=== PATIENT | male | born 1980 | race American Indian/Alaskan Native ===

== ENCOUNTER 2018-05-17 19:38 | Emergency (ER) | payer OTHER ==
[2018-05-17] MEDS ORDERED: ASPIRIN PO ONE (20:06)
[2018-05-17 20:26] LABS: Basophils # (Auto) 0.1 K/mm3 (0.0-0.1); Basophils % (Auto) 1.2 % (0.0-1.8); Eosinophils # (Auto) 0.1 K/mm3 (0.0-0.4); Eosinophils % (Auto) 1.1 % (0.0-4.3); Hematocrit 42.9 % (35.5-45.6); Lymphocytes # (Auto) 2.4 K/mm3 (1.2-5.4); Lymphocytes % (Auto) 31.9 % (13.4-35.0); Mean Corpuscular HGB Conc 33 % (32-34); Mean Corpuscular Volume 80 fl (84-94); Monocytes # (Auto) 0.9 K/mm3 (0.0-0.8); Monocytes % (Auto) 12.6 % (0.0-7.3); Platelet Count 322 K/mm3 (140-440); Red Blood Count 5.34 M/mm3 (3.65-5.03); Red Cell Distribution Width 14.7 % (13.2-15.2)
[2018-05-17 20:51] LABS: Alanine Aminotransferase 23 units/L (7-56); Albumin 4.2 g/dL (3.9-5); BUN/Creatinine Ratio 10; Blood Urea Nitrogen 12 mg/dL (9-20); Calcium 9.3 mg/dL (8.4-10.2); Hemolysis Index 14
--- NOTE | 2018-05-17 21:23 | Emergency Department Report ---
ED General Adult HPI - General Chief complaint: High BP Stated complaint: HIGH BLOOD PRESSURE Time Seen by Provider: 05/17/18 20:53 Source: patient, RN notes reviewed Mode of arrival: Ambulatory Limitations: No Limitations - History of Present Illness Initial comments: This is a 37-year-old gentleman who is not known to this provider previously. The patient reports a past medical history of hypertension, and possible atrial tachycardia. He recently moved here from [place]. He is taking metoprolol 25 mg daily, and ran out of his combination medication, sofya, 5/40, approximately 6 months ago. He presents to the ER today with a complaint of h igh blood pressure, sensation of chest racing. The symptoms are now resolved. The patient complains of no headache, denies chest pain, denies shortness of breath, denies vomiting, diaphoresis, and denies loss of consciousness. symptoms were transient, did not radiate anywhere, did not have exacerbating or relieving factors. The patient reports that earlier on this morning, he felt very transiently lightheaded, this lasted for a few seconds and it has since resolved. No recent surgery, no recent hospitalizations, no leg pain or leg swelling. Reports no recent prolonged periods of immobility. Does admits to road trip to [place] a few weeks ago, and reports stopping for gas and/or b athroom breaks. Patient specifically denies chest pain and shortness of breath at this time. -: Sudden Severity scale (0 -10): 0 Consistency: intermittent Improves with: none Worsens with: none Associated Symptoms: denies other symptoms - Related Data Previous Rx's Medication Instructions Recorded Last Taken Type Amlodipine Besylate [Norvasc] 5 mg PO QDAY #30 tablet 05/17/18 Unknown Rx Metoprolol [Lopressor TAB] 25 mg PO QDAY #30 tablet 05/17/18 Unknown Rx Allergies Allergy/AdvReac Type Severity Reaction Status Date / Time No Known Allergies Allergy Unverified 05/17/18 20:00 ED Review of Systems ROS: Stated complaint: HIGH BLOOD PRESSURE Other details as noted in HPI Constitutional: denies: fever Eyes: denies: vision change ENT: denies: epistaxis Respiratory: denies: cough Cardiovascular: palpitations. denies: chest pain Gastrointestinal: denies: abdominal pain, nausea, vomiting Genitourinary: denies: dysuria Musculoskeletal: denies: back pain Skin: denies: rash, lesions Neurological: denies: headache, weakness, abnormal gait, vertigo Psychiatric: denies: anxiety, depression ED Past Medical Hx - Past Medical History Previous Medical History?: Yes Hx Hypertension: Yes - Surgical History Past Surgical History?: No - Social History Smoking Status: Never Smoker Substance Use Type: None - Medications Home Medications: Home Medications Medication Instructions Recorded Confirmed Last Taken Type Amlodipine Besylate [Norvasc] 5 mg PO QDAY #30 tablet 05/17/18 Unknown Rx Metoprolol [Lopressor TAB] 25 mg PO QDAY #30 tablet 05/17/18 Unknown Rx ED Physical Exam - General Limitations: No Limitations General appearance: alert, in no apparent distress - Head Head exam: Present: atraumatic, normocephalic - Eye Eye exam: Present: normal appearance, EOMI. Absent: nystagmus - ENT ENT exam: Present: normal exam, normal orophraynx, mucous membranes moist, normal external ear exam - Neck Neck exam: Present: normal inspection, full ROM. Absent: tenderness, meningismus - Respiratory Respiratory exam: Present: normal lung sounds bilaterally. Absent: respiratory distress - Cardiovascular Cardiovascular Exam: Present: regular rate, normal rhythm, normal heart sounds. Absent: bradycardia, tachycardia, irregular rhythm, systolic murmur, diastolic m urmur, rubs, gallop - GI/Abdominal GI/Abdominal exam: Present: soft. Absent: distended, tenderness, guarding, rebound, rigid, pulsatile mass - Rectal Rectal exam: Present: deferred - Extremities Exam Extremities exam: Present: normal inspection, full ROM, other (2+ pulses noted in the bilateral upper, lower extremities. Compartments soft. No long bony tenderness. The pelvis is stable.). Absent: calf tenderness (there is no palpable cord. There is a negative Homans sign.) - Back Exam Back exam: Present: normal inspection, full ROM. Absent: tenderness, CVA tenderness (R), paraspinal tenderness, vertebral tenderness - Neurological Exam Neurological exam: Present: alert, oriented X3, CN II-XII intact, normal gait, other (Extraocular movements intact. Tongue midline. No facial droop. Facial sensation intact to light touch in the V1, V2, V3 distribution bilaterally. 5 and 5 strength in 4 extremities.. Sensation is intact to light touch in 4 extremities.). Absent: motor sensory deficit - Psychiatric Psychiatric exam: Present: anxious - Skin Skin exam: Present: warm, dry, intact, normal color. Absent: rash ED Course Vital Signs 05/17/18 05/17/18 05/17/18 19:56 20:00 20:51 Temperature 98.0 F 98 F 98.3 F Pulse Rate 109 H 105 H 99 H Respiratory 18 18 18 Rate Blood Pressure 199/117 199/117 Blood Pressure 144/106 [Left] O2 Sat by Pulse 98 98 100 Oximetry 05/17/18 20:52 Temperature Pulse Rate Respiratory 18 Rate Blood Pressure Blood Pressure [Left] O2 Sat by Pulse 99 Oximetry ED Medical Decision Making - Lab Data Result diagrams: 05/17/18 20:12 05/17/18 20:12 Vital Signs 05/17/18 05/17/18 05/17/18 19:56 20:00 20:51 Temperature 98.0 F 98 F 98.3 F Pulse Rate 109 H 105 H 99 H Respiratory 18 18 18 Rate Blood Pressure 199/117 199/117 Blood Pressure 144/106 [Left] O2 Sat by Pulse 98 98 100 Oximetry 05/17/18 20:52 Temperature Pulse Rate Respiratory 18 Rate Blood Pressure Blood Pressure [Left] O2 Sat by Pulse 99 Oximetry Lab Results 05/17/18 05/17/18 Range/Units 20:12 20:12 WBC 7.4 (4.5-11.0) K/mm3 RBC 5.34 H (3.65-5.03) M/mm3 Hgb 14.0 (11.8-15.2) gm/dl Hct 42.9 (35.5-45.6) % MCV 80 L (84-94) fl MCH 26 L (28-32) pg MCHC 33 (32-34) % RDW 14.7 (13.2-15.2) % Plt Count 322 (140-440) K/mm3 Lymph % (Auto) 31.9 (13.4-35.0) % Will % (Auto) 12.6 H (0.0-7.3) % Eos % (Auto) 1.1 (0.0-4.3) % Baso % (Auto) 1.2 (0.0-1.8) % Lymph # 2.4 (1.2-5.4) K/mm3 Will # 0.9 H (0.0-0.8) K/mm3 Eos # 0.1 (0.0-0.4) K/mm3 Baso # 0.1 (0.0-0.1) K/mm3 Seg Neutrophils % 53.2 (40.0-70.0) % Seg Neutrophils # 4.0 (1.8-7.7) K/mm3 Sodium 143 (137-145) mmol/L Potassium 4.3 (3.6-5.0) mmol/L Chloride 102.3 (98-107) mmol/L Carbon Dioxide 28 (22-30) mmol/L Anion Gap 17 mmol/L BUN 12 (9-20) mg/dL Creatinine 1.2 (0.8-1.5) mg/dL Estimated GFR > 60 ml/min BUN/Creatinine Ratio 10 % Glucose 118 H (75-100) mg/dL Calcium 9.3 (8.4-10.2) mg/dL Total Bilirubin 0.30 (0.1-1.2) mg/dL AST 16 (5-40) units/L ALT 23 (7-56) units/L Alkaline Phosphatase 89 (35-129) units/L Troponin T < 0.010 (0.00-0.029) ng/mL Total Protein 7.6 (6.3-8.2) g/dL Albumin 4.2 (3.9-5) g/dL Albumin/Globulin Ratio 1.2 % - EKG Data -: EKG Interpreted by Me EKG shows normal: sinus rhythm Rate: normal - EKG Data When compared to previous EKG there are: previous EKG unavailable 05/17/18 21:32 Sinus tachycardia, 100 bpm, normal axis, QTC prolonged, poor R wave progression, borderline high left ventricular voltage, abnormal EKG, not consistent with ST elevation myocardial infarction. - Medical Decision Making Differential diagnosis, including not limited to: Anxiety, hypertension, palpitations, medication refill, medication noncompliance Assessment and plan: 37-year-old gentleman with a primary complaint of painless palpitations and sensation of high blood pressure. Currently, blood pressure 144/106, with a heart rate of 92 bpm. Patient appears to be quite comfortable, and I find the patient to be low risk by well's criteria. A troponin was sent prior to my evaluation, and based off of my history, I think it is very unlikely that the patient has acute coronary syndrome, and he is also at low risk by the heart score. He is in no acute distress, we will refill his amlodipine and metoprolol, it appears that his sofya medication is quite expensive, and the patient endorsed concern over being able to take the medication secondary to fisal reasons. In addition, the patient has been off of that medication for about half the year, does not require emergent reinitiation. He'll be referred to outpatient primary care and cardiology. Return precautions are reviewed. Critical care attestation.: If time is entered above; I have spent that time in minutes in the direct care of this critically ill patient, excluding procedure time. ED Disposition Clinical Impression: Elevated blood pressure reading, Palpitations, Medication refill Disposition: TO HOME OR SELFCARE Is pt being admited?: No Does the pt Need Aspirin: No Condition: Good Instructions: Hypertension (ED), Palpitations (ED) Additional Instructions: Take medications as directed. The combination medication that the patient was taking, sofya, is currently not on the $4 prescription list. However, one portion of this medication, amlodipine, is on the $4 list. Please follow-up with the primary care doctor or die reamer within the next month. I recommended weight loss as the patient is physically able to tolerate, and initiation of a physical fitness routine, as the patient is able to physically tolerated. In addition, I recommend dietary modifications, to include plenty of fruits, fibers, leafy vegetables, and avoid consumption of heavy, spicy foods, simple carbohydrates, and sugary drinks. It is important that the patient gradually lowered blood pressure over long- term, as long-term complications of hypertension and elevated blood pressure i nclude stroke, heart attack, disability, paralysis, loss of quality of life. Please return to the ER right away with new pain, worsened pain, migration of pain, productive vomiting, change in mental status, confusion, inability to tolerate liquid feeds. Referrals: [facility] [Provider Group] - 3-5 Days [facility] [Provider Group] - 3-5 Days [facility] [Provider Group] - 3-5 Days
[2018-05-17 22:14] VITALS: BP 155/97
== END 2018-05-17 22:10 | disposition home or self-care (01) ==
LOC: ED 19:38
DX: I10 Essential (primary) hypertension (principal)
CPT/HCPCS: 80053; 84484; 85025; 93005; 93010